=== PATIENT | female | born 1965 | race Caucasian/White ===

== ENCOUNTER 2021-06-15 10:19 | Emergency (ER) | payer MEDICARE ==
[~2021-06-15] VITALS: Ht 172.7 cm; Wt 99.8 kg
[2021-06-15 11:17] LABS: BASOPHILS ABSOLUTE AUTO 0.09 K/mm3 (0.00-0.23); BASOPHILS PERCENT AUTO 1 % (0-2); EOSINOPHILS ABSOLUTE AUTO 0.07 K/mm3 (0.00-0.68); EOSINOPHILS PERCENT AUTO 1 % (0-6); Hematocrit 39.7 % (33.0-51.0); Hemoglobin 13.3 g/dL (11.5-16.0); IMMATURE GRAN ABSOLUTE AUTO 0.06 K/mm3 (0.00-0.10); IMMATURE GRAN PERCENT AUTO 0 % (0-1); LYMPHOCYTES ABSOLUTE AUTO 1.54 K/mm3 (0.84-5.20); LYMPHOCYTES PERCENT AUTO 10 % (21-46); MONOCYTES ABSOLUTE AUTO 0.59 K/mm3 (0.16-1.47); MONOCYTES PERCENT AUTO 4 % (4-13); Mean Corpuscular HGB 31.7 pg (26.0-34.0); Mean Corpuscular HGB Conc 33.5 g/dL (31.5-36.5); Mean Corpuscular Volume 95 fL (80-100); Mean Platelet Volume 9.6 fL (9.1-12.4); NEUTROPHILS ABSOLUTE AUTO 12.96 K/mm3 (1.96-9.15); NEUTROPHILS PERCENT AUTO 85 % (41-73); Platelet Count 328 K/mm3 (150-400); RDW Coefficient Variation 12.9 % (11.7-14.2); RDW Standard Deviation 44.2 fL (35.1-46.3); White Blood Cell Count 15.31 K/mm3 (4.00-11.30)
[2021-06-15 11:30] LABS: Alanine Aminotransfer (ALT/SGP 84 U/L (12-78); Albumin, Blood 3.8 g/dL (3.4-5.0); Albumin/Globulin Ratio 1.1 (0.8-1.8); Alk Phos 109 U/L (50-136); Anion Gap 6 mmol/L (6-16); Aspartate Aminotrans (AST/SGOT 40 U/L (12-37); Bilirubin, Total 0.6 mg/dL (0.1-1.0); Blood Urea Nitrogen 10 mg/dL (8-24); Bun/Creatinine Ratio 14.4 (12.0-20.0); CO2, Blood 28 mmol/L (21-32); Calcium, Blood 9.3 mg/dL (8.5-10.1); Chloride, Blood 105 mmol/L (98-108); Creatinine, Blood 0.69 mg/dL (0.40-1.00); Globulin, Blood 3.6 g/dL (2.2-4.0); Glomerular Filtration Rate >60 (60-); Glucose, Blood 134 mg/dL (70-99); Potassium, Blood 4.1 mmol/L (3.5-5.5); Sodium, Blood 139 mmol/L (136-145); Total Protein, Blood 7.4 g/dL (6.4-8.2)
[2021-06-15] MEDS ORDERED: PREGABALIN75 MG (11:33)
[2021-06-15] MEDS ORDERED: FLUTICASONE-SA1 EAC9 (11:33)
[2021-06-15] MEDS ORDERED: ZOLOFT50 MG (11:33)
[2021-06-15] MEDS ORDERED: OXYCODONE ACET (11:33)
[2021-06-15] MEDS ORDERED: ZANAFLEX4 M9 (11:33)
[2021-06-15] MEDS ORDERED: TRAZ50 (11:33)
[2021-06-15] MEDS ORDERED: Atarax10 MG (11:33)
[2021-06-15] MEDS ORDERED: FLUTICASONE PRO16 GM (11:33)
[2021-06-15] MEDS ORDERED: LOSARTAN-HCTZ1 EACH (11:34)
[2021-06-15] MEDS ORDERED: ONDA4ODT MM (12:25)
[2021-06-15] MEDS ORDERED: AMOCLA875 PO (12:25)
== END 2021-06-15 13:08 | disposition home or self-care (01) ==
LOC: ER 10:19
PROVIDERS: Physician Assistant
DX: K57.32 Diverticulitis of large intestine without perforation or abscess without bleeding (principal)
CPT/HCPCS: 74177; 80053; 85025; 96374; 96375; 99284-25; J1170; J2270; J2405; Q9967

== ENCOUNTER 2021-10-27 16:13 | Emergency (ER) | payer MEDICARE, OTHER ==
[~2021-10-27] VITALS: Ht 172.7 cm; Wt 99.8 kg
[~2021-10-27 16:13] MED LIST: AMOCLA875 PO; Atarax10 MG; FLUTICASONE PRO16 GM; FLUTICASONE-SA1 EAC9; LOSARTAN-HCTZ1 EACH; ONDA4ODT MM; OXYCODONE ACET; PREGABALIN75 MG; TRAZ50; ZANAFLEX4 M9; ZOLOFT50 MG
[2021-10-27 17:19] LABS: BASOPHILS ABSOLUTE AUTO 0.09 K/mm3 (0.00-0.23); BASOPHILS PERCENT AUTO 1 % (0-2); EOSINOPHILS PERCENT AUTO 1 % (0-6); Hematocrit 43.7 % (33.0-51.0); Hemoglobin 15.3 g/dL (11.5-16.0); IMMATURE GRAN ABSOLUTE AUTO 0.17 K/mm3 (0.00-0.10); IMMATURE GRAN PERCENT AUTO 2 % (0-1); LYMPHOCYTES ABSOLUTE AUTO 1.78 K/mm3 (0.84-5.20); LYMPHOCYTES PERCENT AUTO 18 % (21-46); MONOCYTES ABSOLUTE AUTO 0.69 K/mm3 (0.16-1.47); MONOCYTES PERCENT AUTO 7 % (4-13); Mean Corpuscular HGB 31.4 pg (26.0-34.0); Mean Corpuscular Volume 90 fL (80-100); Mean Platelet Volume 9.5 fL (9.1-12.4); NEUTROPHILS ABSOLUTE AUTO 7.12 K/mm3 (1.96-9.15); NEUTROPHILS PERCENT AUTO 72 % (41-73); Platelet Count 414 K/mm3 (150-400); RDW Coefficient Variation 13.1 % (11.7-14.2); RDW Standard Deviation 42.3 fL (35.1-46.3); Red Blood Cell Count 4.88 M/mm3 (3.80-5.20); White Blood Cell Count 9.95 K/mm3 (4.00-11.30)
[2021-10-27 17:28] LABS: Bilirubin, Total 0.8 mg/dL (0.1-1.0); Bun/Creatinine Ratio 21.5 (12.0-20.0); Calcium, Blood 10.1 mg/dL (8.5-10.1); Creatinine, Blood 0.61 mg/dL (0.40-1.00); Potassium, Blood 3.1 mmol/L (3.5-5.5)
[2021-10-27] MEDS ORDERED: PAXIL PO (19:47)
[2021-10-27] MEDS ORDERED: KLONOPIN0.5 M8 PO (19:47)
[2021-10-27 22:02] LABS: Source, Urine Clean Catch
[2021-10-27 22:06] LABS: Bilirubin, Urine Neg (Neg); Blood, Urine 1+ (Neg); Color, Urine Yellow (P-Yellow); Glucose Qualitative, Urine Neg (Neg); Ketones, Urine 3+ (Neg); Leukocyte Esterase, Urine Neg (Neg); Nitrite, Urine Neg (Neg); Protein, Urine 1+ (Neg); Urobilinogen, Urine 1+ (Normal); pH, Urine 6.5 (5.0-8.0)
[2021-10-27 22:12] LABS: Appearance, Urine Clear (Clear)
[2021-10-27 22:14] LABS: Bacteria Mod /hpf; Mucus Light (0-Heavy)
[2021-10-27 22:15] LABS: Red Blood Cells, Urine 0-2 /hpf (0-2); Squamous Epithelial Cells Few /hpf (Few); White Blood Cells, Urine 0-2 /hpf (0-5)
[2021-10-27] MEDS ORDERED: ONDA4ODT MM (22:58)
== END 2021-10-27 23:11 | disposition home or self-care (01) ==
LOC: ER 16:13
PROVIDERS: Physician Assistant
DX: K85.90 Acute pancreatitis without necrosis or infection, unspecified (principal); Z79.899 Other long term (current) drug therapy
CPT/HCPCS: 36415; 74177; 76705; 80053; 81001; 83690; 85025; 87086; 96361; 96374; 96375; 96376; 99284-25; A9270; J2270; J2405; J7030; Q9967

== ENCOUNTER 2022-01-29 13:24 | Emergency (ER) | payer MEDICARE, OTHER ==
[~2022-01-29] VITALS: Ht 172.7 cm; Wt 97.5 kg
[~2022-01-29 13:24] MED LIST changes: +KLONOPIN0.5 M8 PO; +PAXIL PO
[2022-01-29] MEDS ORDERED: KETO10 PO (15:17)
== END 2022-01-29 15:33 | disposition home or self-care (01) ==
LOC: ER 13:24
DX: M25.562 Pain in left knee (principal); M25.572 Pain in left ankle and joints of left foot; M25.552 Pain in left hip; M25.512 Pain in left shoulder; R07.81 Pleurodynia; M25.531 Pain in right wrist; M54.2 Cervicalgia; W18.30XA Fall on same level, unspecified, initial encounter; F17.290 Nicotine dependence, other tobacco product, uncomplicated; Z79.899 Other long term (current) drug therapy
CPT/HCPCS: 71100; 73000; 73100; 96372; 99284-25; J1885

== ENCOUNTER 2022-04-12 12:55 | Emergency (ER) | payer MEDICARE ==
[~2022-04-12] VITALS: Ht 162.6 cm; Wt 102.1 kg
[~2022-04-12 12:55] MED LIST changes: +KETO10 PO
[2022-04-12 13:29] LABS: BASOPHILS ABSOLUTE AUTO 0.09 K/mm3 (0.00-0.23); BASOPHILS PERCENT AUTO 1 % (0-2); EOSINOPHILS ABSOLUTE AUTO 0.25 K/mm3 (0.00-0.68); EOSINOPHILS PERCENT AUTO 3 % (0-6); Hematocrit 40.2 % (33.0-51.0); IMMATURE GRAN ABSOLUTE AUTO 0.02 K/mm3 (0.00-0.10); IMMATURE GRAN PERCENT AUTO 0 % (0-1); LYMPHOCYTES ABSOLUTE AUTO 1.66 K/mm3 (0.84-5.20); LYMPHOCYTES PERCENT AUTO 18 % (21-46); MONOCYTES ABSOLUTE AUTO 0.44 K/mm3 (0.16-1.47); MONOCYTES PERCENT AUTO 5 % (4-13); Mean Corpuscular HGB Conc 34.8 g/dL (31.5-36.5); Mean Corpuscular Volume 92 fL (80-100); Mean Platelet Volume 9.8 fL (9.1-12.4); NEUTROPHILS ABSOLUTE AUTO 6.78 K/mm3 (1.96-9.15); NEUTROPHILS PERCENT AUTO 73 % (41-73); Platelet Count 273 K/mm3 (150-400); RDW Coefficient Variation 12.5 % (11.7-14.2); RDW Standard Deviation 42.1 fL (35.1-46.3); Red Blood Cell Count 4.38 M/mm3 (3.80-5.20); White Blood Cell Count 9.24 K/mm3 (4.00-11.30)
[2022-04-12 13:52] LABS: Albumin, Blood 3.9 g/dL (3.4-5.0); Albumin/Globulin Ratio 1.1 (0.8-1.8); Bilirubin, Total 0.8 mg/dL (0.1-1.0); Bun/Creatinine Ratio 21.9 (12.0-20.0); Creatinine, Blood 0.82 mg/dL (0.40-1.00); Globulin, Blood 3.5 g/dL (2.2-4.0); Potassium, Blood 3.7 mmol/L (3.5-5.5); Total Protein, Blood 7.4 g/dL (6.4-8.2)
[2022-04-12] MEDS ORDERED: METPRE4DP PO (20:34)
== END 2022-04-12 20:50 | disposition home or self-care (01) ==
LOC: ER 12:55
PROVIDERS: Physician Assistant
DX: M54.16 Radiculopathy, lumbar region (principal); Z79.899 Other long term (current) drug therapy
CPT/HCPCS: 36415; 72100; 73590; 80053; 83735; 85025; J1170; J1885; J2405; J7030

== ENCOUNTER 2022-08-12 16:18 | Emergency (ER) | payer MEDICARE, OTHER ==
[~2022-08-12] VITALS: Ht 172.7 cm; Wt 102.1 kg
[~2022-08-12 16:18] MED LIST changes: +METPRE4DP PO
[2022-08-12 16:45] VITALS: BP 109/73
[2022-08-12] MEDS ORDERED: LIDO700A20 TOP (20:05)
== END 2022-08-12 19:58 | disposition home or self-care (01) ==
LOC: ER 16:18
DX: S20.211A Contusion of right front wall of thorax, initial encounter (principal); W22.8XXA Striking against or struck by other objects, initial encounter; Z79.899 Other long term (current) drug therapy; I10 Essential (primary) hypertension
CPT/HCPCS: 71101; 96372; 99283-25; A9270; J1885

== ENCOUNTER 2022-12-30 12:50 | Emergency (ER) | payer MEDICARE, OTHER ==
[~2022-12-30] VITALS: Ht 172.7 cm; Wt 104.3 kg
[~2022-12-30 12:50] MED LIST changes: +LIDO700A20 TOP
[2022-12-30 12:55] VITALS: BP 105/66
== END 2022-12-30 15:27 | disposition home or self-care (01) ==
LOC: ER 12:50
DX: S92.532A Displaced fracture of distal phalanx of left lesser toe(s), initial encounter for closed fracture (principal); S00.12XA Contusion of left eyelid and periocular area, initial encounter; S00.11XA Contusion of right eyelid and periocular area, initial encounter; M25.561 Pain in right knee; M25.562 Pain in left knee; Z79.899 Other long term (current) drug therapy; I10 Essential (primary) hypertension; W18.30XA Fall on same level, unspecified, initial encounter; R55 Syncope and collapse
CPT/HCPCS: 70450; 73562-LT; 73562-RT; 73630; 96372; 99284-25; J3010

== ENCOUNTER 2023-05-30 15:14 | Emergency (ER) | payer MEDICARE, OTHER ==
[~2023-05-30] VITALS: Ht 172.7 cm; Wt 104.3 kg
[2023-05-30] MEDS ORDERED: Ondansetron 4 MG SoluTab SL ONE (17:50)
[2023-05-30] MEDS ORDERED: HYDROmorphone HCl/Pf 1MG SYR IM ONE (17:50)
[2023-05-30] MEDS ORDERED: Percocet 5-3251 EACH PO (17:53)
[2023-05-30 18:00] VITALS: BP 132/76
== END 2023-05-30 18:27 | disposition home or self-care (01) ==
LOC: ER 15:14
DX: S52.572A Other intraarticular fracture of lower end of left radius, initial encounter for closed fracture (principal); W19.XXXA Unspecified fall, initial encounter; R42 Dizziness and giddiness; T40.495A Adverse effect of other synthetic narcotics, initial encounter; I10 Essential (primary) hypertension; Z79.899 Other long term (current) drug therapy
CPT/HCPCS: 29125; 73060; 73090; 96372-59; 99283-25; A9270; J1170; L3917

== ENCOUNTER 2023-06-07 12:11 | Day surgery (SDC) | payer MEDICARE, OTHER ==
[~2023-06-07] VITALS: Ht 172.7 cm; Wt 102.8 kg
[~2023-06-07 12:11] MED LIST changes: +Lactated Ringer's 1,000 ML IV ONE; +Percocet 5-3251 EACH PO
[2023-06-07] MEDS ORDERED: CeFAZolin Sodium 2,000 MG VIAL ONE (12:43)
[2023-06-07] MEDS ORDERED: Acetaminophen 500 MG Tab ONE (12:43)
[2023-06-07] MEDS ORDERED: Midazolam HCl 1MG / ML 2ML Vial ONE (12:43)
[2023-06-07] MEDS ORDERED: NS 50 ML IV ONE (12:44)
[2023-06-07] MEDS ORDERED: OXYCODONE-ACET1 EAC2 PO (13:15)
[2023-06-07] MEDS ORDERED: PREGABALIN75 MG PO (13:18)
[2023-06-07] MEDS ORDERED: FLUT1DIS2 INH ×2 (13:19)
[2023-06-07] MEDS ORDERED: Lactated Ringer's 1,000 ML IV ONE (13:21)
--- NOTE | 2023-06-07 14:09 | NUR ---
06/07/23 Мария Yousif 2MG VERSED GIVEN IV PRIOR TO BLOCK PROCEDURE PER DR CELESTE'S ORDERS. 1000MG TYLENOL GIVEN PRIOR TO OR PER DR CELESTE'S ORDERS. TIMEOUT COMPLETED PRIOR TO BLOCK PROCEDURE.
[2023-06-07] MEDS ORDERED: Ketamine HCL 10 MG/ML 5ML SYR ONE (14:13)
[2023-06-07] MEDS ORDERED: propofoL 20 ML IV ONE ×2 (14:26→15:05)
--- NOTE | 2023-06-07 14:48 | NUR ---
06/07/23 1448 Bambi Calero A PILLOW UNDER HEAD AND KNEES, RIGHT ARM SECURED ON PADDED ARM BOARD. LEFT WRIST AREA WITH GENERALIZED BRUISING. NO OPEN AREAS.
[2023-06-07] MEDS ORDERED: Bupivacaine 0.5% HCl 5 MG/ML 30MLVIAL ONE (15:05)
[2023-06-07 16:14] VITALS: BP 107/86
--- NOTE | 2023-06-07 16:18 | NUR ---
06/07/23 1618 CRISTIAN RAMSEY [id number] PT UP IN RN TRANSFERED PT TO BATHROOM TO VOID. [facility]
== END 2023-06-07 17:01 | disposition home or self-care (01) ==
LOC: ORSCSDS 12:11
PROVIDERS: Orthopaedic Surgery
PROC: 0PSJ04Z Reposition Left Radius with Internal Fixation Device, Open Approach (ICD-10-PCS; principal; 2023-06-07 13:15)
DX: S52.552A Other extraarticular fracture of lower end of left radius, initial encounter for closed fracture (principal); W18.30XA Fall on same level, unspecified, initial encounter; G47.33 Obstructive sleep apnea (adult) (pediatric); Z87.891 Personal history of nicotine dependence; J45.909 Unspecified asthma, uncomplicated; I10 Essential (primary) hypertension; E66.9 Obesity, unspecified; Z68.35 Body mass index [BMI] 35.0-35.9, adult; Z79.899 Other long term (current) drug therapy
CPT/HCPCS: A9270; C1713; J0690; J2250; J2704; J7120

== ENCOUNTER 2023-09-27 06:44 | Day surgery (SDC) | payer MEDICARE, OTHER ==
[~2023-09-27] VITALS: Ht 172.7 cm; Wt 101.1 kg
[~2023-09-27 06:44] MED LIST changes: +FLUT1DIS2 INH; -Lactated Ringer's 1,000 ML IV ONE; +OXYCODONE-ACET1 EAC2 PO; +PREGABALIN75 MG PO
[2023-09-27] MEDS ORDERED: Lactated Ringer's 1,000 ML IV ONE ×2 (07:34→08:02)
[2023-09-27] MEDS ORDERED: propofoL 50 ML IV ONE (07:34)
[2023-09-27 09:06] VITALS: BP 115/64
== END 2023-09-27 09:14 | disposition home or self-care (01) ==
LOC: ORSCSDS 06:44
PROVIDERS: Internal Medicine Gastroenterology
PROC: 0DB98ZX Excision of Duodenum, Via Natural or Artificial Opening Endoscopic, Diagnostic (ICD-10-PCS; principal; 2023-09-27 08:00)
PROC: 0DJD8ZZ Inspection of Lower Intestinal Tract, Via Natural or Artificial Opening Endoscopic (ICD-10-PCS; principal; 2023-09-27 08:00)
PROC: 0DB68ZX Excision of Stomach, Via Natural or Artificial Opening Endoscopic, Diagnostic (ICD-10-PCS; principal; 2023-09-27 08:00)
DX: R10.13 Epigastric pain (principal); K29.50 Unspecified chronic gastritis without bleeding; Z12.11 Encounter for screening for malignant neoplasm of colon; K57.30 Diverticulosis of large intestine without perforation or abscess without bleeding; Z86.010 Personal history of colon polyps; R10.31 Right lower quadrant pain; Z80.0 Family history of malignant neoplasm of digestive organs; I10 Essential (primary) hypertension; K21.9 Gastro-esophageal reflux disease without esophagitis; F41.9 Anxiety disorder, unspecified; J45.909 Unspecified asthma, uncomplicated; F32.A Depression, unspecified; Z79.899 Other long term (current) drug therapy; Z87.891 Personal history of nicotine dependence
CPT/HCPCS: 43239; G0105; 88305; 88342; J2704; J7120

== ENCOUNTER 2023-10-24 03:18 | Emergency (ER) | payer OTHER, MEDICARE ==
[~2023-10-24] VITALS: Ht 172.7 cm; Wt 102.1 kg
[2023-10-24] MEDS ORDERED: Acetaminophen 500 MG Tab PO ONE (05:05)
[2023-10-24] MEDS ORDERED: Ibuprofen 600 MG Tab PO ONE (05:05)
[2023-10-24 08:00] VITALS: BP 128/79
== END 2023-10-24 10:29 | disposition home or self-care (01) ==
LOC: ER 03:18
DX: S01.412A Laceration without foreign body of left cheek and temporomandibular area, initial encounter (principal); I10 Essential (primary) hypertension; F17.290 Nicotine dependence, other tobacco product, uncomplicated; W01.198A Fall on same level from slipping, tripping and stumbling with subsequent striking against other object, initial encounter; Z79.899 Other long term (current) drug therapy
CPT/HCPCS: 12011; 70450; 70486; 72125; 99283-25; A9270; L0160

== ENCOUNTER 2025-01-24 16:35 | Emergency (ER) | payer MEDICARE, OTHER ==
[~2025-01-24] VITALS: Ht 172.7 cm; Wt 90.7 kg
[~2025-01-24 16:35] MED LIST changes: +NARCAN4 M1
[2025-01-24 17:02] LABS: BASOPHILS ABSOLUTE AUTO 0.07 K/mm3 (0.00-0.23); BASOPHILS PERCENT AUTO 1 % (0-2); EOSINOPHILS ABSOLUTE AUTO 0.06 K/mm3 (0.00-0.68); EOSINOPHILS PERCENT AUTO 1 % (0-6); Hematocrit 45.7 % (33.0-51.0); Hemoglobin 15.1 g/dL (11.5-16.0); IMMATURE GRAN ABSOLUTE AUTO 0.02 K/mm3 (0.00-0.10); IMMATURE GRAN PERCENT AUTO 0 % (0-1); LYMPHOCYTES ABSOLUTE AUTO 1.87 K/mm3 (0.84-5.20); LYMPHOCYTES PERCENT AUTO 25 % (21-46); MONOCYTES ABSOLUTE AUTO 0.33 K/mm3 (0.16-1.47); MONOCYTES PERCENT AUTO 4 % (4-13); Mean Corpuscular HGB Conc 33.0 g/dL (31.5-36.5); Mean Corpuscular Volume 96 fL (80-100); NEUTROPHILS ABSOLUTE AUTO 5.28 K/mm3 (1.96-9.15); NEUTROPHILS PERCENT AUTO 69 % (41-73); NRBC ABSOLUTE 0.00 K/mm3 (0.00-0.02); NRBC Auto 0.0 /100 WBC (0.0-0.2); Platelet Count 290 K/mm3 (150-400); RDW Coefficient Variation 13.4 % (11.7-14.2); RDW Standard Deviation 48.0 fL (35.1-46.3)
[2025-01-24 17:43] LABS: Alanine Aminotransfer (ALT/SGP 35.0 U/L (12-78); Albumin, Blood 4.2 g/dL (3.4-5.0); Albumin/Globulin Ratio 1.2 (0.8-1.8); Anion Gap 10.0 mmol/L (3-11); Aspartate Aminotrans (AST/SGOT 27.0 U/L (12-37); Bilirubin, Total 0.5 mg/dL (0.1-1.0); Blood Urea Nitrogen 16.0 mg/dL (8-24); CO2, Blood 30.0 mmol/L (21-32); Calcium, Blood 9.8 mg/dL (8.5-10.1); Chloride, Blood 101.0 mmol/L (98-108); Creatinine, Blood 0.76 mg/dL (0.40-1.00); Globulin, Blood 3.6 g/dL (2.2-4.0); Glucose, Blood 132.0 mg/dL (70-99); Potassium, Blood 3.8 mmol/L (3.5-5.5); Sodium, Blood 137.0 mmol/L (136-145); Thyroid Stimulating Hormone 1.41 uIU/mL (0.360-4.800); Total Protein, Blood 7.8 g/dL (6.4-8.2)
[2025-01-24] MEDS ORDERED: LORazepam 2 MG/ML 1ML Injection IV ONE (18:40)
[2025-01-24 20:00] VITALS: BP 152/101
== END 2025-01-24 20:22 | disposition home or self-care (01) ==
LOC: ER 16:35
PROVIDERS: Emergency Medicine
DX: F11.23 Opioid dependence with withdrawal (principal); R00.2 Palpitations; R07.9 Chest pain, unspecified; I10 Essential (primary) hypertension; F17.290 Nicotine dependence, other tobacco product, uncomplicated
CPT/HCPCS: 80053; 84443; 84484; 85025; 93005; 93010; 99283-25; A9270; J2060